=== PATIENT | male | born 1940 | race Caucasian/White ===

== ENCOUNTER 2016-05-24 11:17 | Observation (INO) | payer MEDICARE ==
[~2016-05-24] VITALS: Ht 170.2 cm; Wt 70.7 kg
[2016-05-24] VITALS (8 sets, daily range): BP systolic 136–169; BP diastolic 68–84; PULSE 63–76; RESP 18–20; O2SAT 96–100
[~2016-05-24 11:17] MED LIST: CHOL100045 PO; HYDR500C2 PO; LISI-571 PO; OMEP20TA24 PO; areds PO
--- NOTE | 2016-05-24 11:32 | ED.REPORT ---
HPI-Chest Pain 40 and Over Date of Service May 24, 2016 ED Provider: Roderick Herr MD 76 year old male with a history of HTN and GERD presents to the ER accompanied by his complaining of multiple episodes of chest pain. Pain is described as a dull pressure. First episode onset 3 days ago while he was walking the dog , and lasted 45 minutes. At that time an aching pain radiated down his left arm , and all symptoms were relieved with rest. Second episode onset the following day, again with exertion, was similar in its duration lasting approximately 30 minutes, and was again resolved itself after resting. Associated dizziness with both episodes. When symptoms returned last night he informed his is who insisted on bringing him into the ER today, which is the reason for his visit. Patient denies SOB, nausea, or diaphoresis with symptoms. Nursing Notes Stated Complaint: CHEST PAIN Chief Complaint: Chest Pain Nursing Notes Reviewed: Yes Allergies: Coded Allergies: No Known Allergies (Verified Allergy, Unknown, 05/24/16) Scheduled ([areds]) 1 CAPSULE PO DAILY Cholecalciferol (Vitamin D3) (Vitamin D) 1,000 Unit Capsule 2,000 UNIT PO DAILY Hydroxyurea (Hydroxyurea) 500 Mg Capsule 500 MG PO DAILY Lisinopril (Lisinopril) 5 Mg Tablet 2.5 MG PO DAILY Omeprazole Magnesium (Prilosec Otc) 20 Mg Tablet.dr 20 MG PO DAILY General Time Seen by MD: 11:33 Chief Complaint Chest pain Hx Obtained From: Patient, Spouse Arrived By: Walk-in Sudden in Onset?: Yes Onset Occurred: 2 days ago (2 and 3) Location: : Substernal Quality: Painful Radiation: : Arm left Severity: Current: No pain currently Severity: Maximum: Moderate Associated with: Reports: Dizziness, Denies: Diaphoresis, Nausea, Shortness of Breath, Vomiting Context Related History: Reports: GERD, Hypertension Similar Sx Previous: No Risk Factors HEART Score HEART for MACE: Mod index of susp (1), Age 65 or over (2), 1-2 CAD risk factors (1) HEART for MACE Score: 4-7 (mod risk 12%-16.6%) Past Medical History Past Medical History Reports: GERD, Hypertension, Denies: COPD, Congestive heart failure, Coronary artery disease, Diabetes mellitus Denies: Atrial fibrillation Family History Siblings [place] - age 70 and 80 Smoking History Former Smoker (15 years) Social History Alcohol Use: 1-3 per day Other Social History: Good social support, Ambulatory Status Independent Review of Systems Respiratory: Denies: Non-productive cough, Shortness of breath Cardiovascular: Reports: Chest pain GI: Denies: Nausea, Vomiting Musculoskeletal: Reports: Extremity pain, Denies: Back pain, Lumbar pain, Neck pain Skin: Denies Diaphoresis Complete sys rev & neg: except as marked. Physical Exam Initial Vital Signs Vital Signs (First) Date Time Temp Pulse Resp B/P Pulse Ox O2 Delivery O2 Flow Rate FiO2 05/24/16 11:20 36.3 69 18 147/82 96 Room Air Initial VS: Reviewed Head / Eyes: Atraumatic, Normocephalic Neck: Supple, Non-tender, Full range of motion Extremities: Vascular intact, Neuro intact, No swelling, No tenderness Skin: Warm, Dry, No cyanosis Neurologic: Alert, Oriented, Nonfocal General/Constitutional: Awake, Alert, Well developed, Well nourished Respiratory / Chest: Breath sounds NL, Breath sounds = bilat, No respiratory distress, No rales, No rhonchi, No wheezing Cardiovascular: Heart rate NL, Regular rhythm, Heart sounds NL, No murmurs, Peripheral circulation NL, Pulses = bilaterally, No gross BP differential Abdomen: Soft, Non-tender, No guarding, No rebound, No distention Interpretation & Diagnostics Lab Results Interpretation Result Diagram: 05/24/16 1145 05/24/16 1145 Test 05/24/16 11:45 05/24/16 13:30 White Blood Count 7.8th/mm3 (3.8-10.1) Red Blood Count 4.08mil/mm3 (4.40-5.80) Hemoglobin 14.7g/dL (13.8-17.2) Hematocrit 42.0% (41.0-50.0) Mean Corpuscular Volume 102.9fL (81-100) Mean Corpuscular Hemoglobin 36.0pg (27.0-35.0) Mean Corpuscular Hemoglobin Concent 35.0% (32.0-37.0) Red Cell Distribution Width 13.4% (12.3-15.4) Platelet Count 334bil/L (150-400) Neutrophils (%) (Auto) 65.6% (40-74) Lymphocytes (%) (Auto) 15.7% (14-46) Monocytes (%) (Auto) 14.7% (4-12) Eosinophils (%) (Auto) 2.8% (0-5) Basophils (%) (Auto) 0.9% (0-3) Sodium Level 135mEq/L (134-144) Potassium Level 4.4mEq/L (3.5-5.2) Chloride Level 99mEq/L (97-108) Carbon Dioxide Level 24mmol/L (18-29) Blood Urea Nitrogen 20mg/dL (8-27) Creatinine 0.92mg/dL (0.76-1.27) Estimat Glomerular Filtration Rate 85mL/min (>59) Glucose Level 96mg/dL (60-99) Calcium Level 8.7mg/dL (8.5-10.1) Total Bilirubin 0.4mg/dL (0.0-1.2) Aspartate Amino Transf (AST/SGOT) 16U/L (0-50) Alanine Aminotransferase (ALT/SGPT) 9U/L (0-44) Alkaline Phosphatase 68U/L (25-160) Troponin T 0.010ug/L (0.0-0.011) Total Protein 6.3g/dL (6.4-8.4) Albumin 4.0g/dL (3.4-5.0) Hold Rodriguez Top Tube Received (Received) ECG Interpretation Time: 11:37 Interpreted by: ED physician Normal ECG Interpretation: Normal rate, Normal sinus rhythm, No acute ischemic changes, Normal QRS, Normal axis, Normal intervals, No change from prior ECGs, Adequate tracing X-Ray Chest Interpretation Chest Xray Interpretation: IMPRESSION: No acute cardiopulmonary disease. Dictated by: Jhony Bryan RRA Interpreted: Fouzia Bolden MD on 05/24/2016 at 12:19 Transcribed by: FRANCIS on 05/24/2016 at 12:20 View: AP & lat Interpretation / Wet Read by: Interpret - Radiologist Re-Eval/Medical Decision Source of Hx: Family Time of Eval: 11:41 Re-Evaluation/Progress Note: Discussed need for admission. Patient is amenable to the plan. All other questions addressed. 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 I, Dr. Herr, personally performed the history, physical exam and medical decision-making; I reviewed and confirmed the accuracy of the information in the transcribed note. Signed by: Alka August, 05/24/2016 and 13:32 copies to: Joe Fox MD, Kirk H MD May 24, 2016 11:32 KAYLA BOYER May 24, 2016 11:41
[2016-05-24 12:02] LABS: BASOPHILS % (AUTO) 0.9 % (0-3); EOSINOPHILS % (AUTO) 2.8 % (0-5); MONOCYTES % (AUTO) 14.7 % (4-12); Mean Corpuscular Volume 102.9 fL (81-100); NEUTROPHILS % (AUTO) 65.6 % (40-74); Platelet Count 334 bil/L (150-400)
--- NOTE | 2016-05-24 12:20 | DRSVH ---
PROCEDURE: X-RAY CHEST, TWO VIEWS ([id number]) INDICATIONS: CHest Pain TECHNIQUE: 2 views of the chest were acquired. COMPARISON: None. FINDINGS: Surgical changes and devices: None. Lungs and pleura: No pleural effusions or pneumothorax. Lungs are clear. Mediastinum: Mediastinal contours are normal. Heart size is normal. Bones and chest wall: No suspicious bony abnormalities. Soft tissues appear unremarkable. IMPRESSION: No acute cardiopulmonary disease. Dictated by: Jhony Bryan [facility] Interpreted: Fouzia Bolden MD on 05/24/2016 at 12:19 Transcribed by: FRANCIS on 05/24/2016 at 12:20 Approved by: Fouzia Bolden MD, PhD on 05/24/2016 at 16:30
[2016-05-24 12:27] LABS: TROPONIN T 0.01 ug/L (0.0-0.011)
[2016-05-24] MEDS ORDERED: Polyethylene Glycol (PEG) 17 Gm Powder PO PRN (13:15)
[2016-05-24] MEDS ORDERED: Alum-Mag Hydrox-Simeth 30 mL Suspension PO PRN (13:15)
[2016-05-24] MEDS ORDERED: Senna-Docusate 8.6-50 mg Tablet PO PRN (13:15)
[2016-05-24] MEDS ORDERED: Ondansetron 2 mg/mL 2 mL Inj IVPUSH PRN (13:15)
--- NOTE | 2016-05-24 13:46 | PCM.HPMED ---
Subjective Date of Service May 24, 2016 Primary Provider: Admitting Physician: Primary Care Physician: Jerry Brewer MD Attending Physician: Chief Complaint: Chest pain History of Present Illness: Joe Crowder is a 76 year old man with past medical history significant for hypertension and thrombocytosis well controlled on hydroxyurea who presented to the [facility] ED accompanied by his complaining of multiple episodes of chest pain that occurred 3 days ago. The pain began when he was walking his dog and noted substernal pressure with radiation to his left arm. The pain lasted for a total of 45 minutes as the patient walked home and the pain continued for 15 minutes after he was at rest. He has had a similar episode of chest pain 3 years ago and had an exercise stress test done that did not show any abnormalities. The second episode occurred when the patient was exerting himself again and lasted about 30 minutes and again resolved with rest. The patient noted dizziness with the episodes but denies any palpitations, nausea, vomiting, abdominal pain, shortness of breath or diaphoresis. The patient later informed his of the events and she brought him to the ED. He is a former smoker of 50 pack years but has quit in 2000. He does have a history of hyperlipidemia but does very poorly with statins and is not one and refuses to start one again. Review of Systems: A comprehensive review of systems was conducted with the patient and found to be negative except as above in the History of Present Illness. Allergies Coded Allergies: No Known Allergies (Verified Allergy, Unknown, 05/24/16) Home Medications Cholecalciferol (Vitamin D3) (Vitamin D) 1,000 Unit Capsule 2,000 UNIT PO DAILY Hydroxyurea (Hydroxyurea) 500 Mg Capsule 500 MG PO DAILY Lisinopril (Lisinopril) 5 Mg Tablet 2.5 MG PO DAILY Omeprazole Magnesium (Prilosec Otc) 20 Mg Tablet.dr 20 MG PO DAILY [facility] Hyperlipidemia Thrombocytosis with JAK2 mutation followed by Dr. Miller Hypertension Surgical History None Family History His sisters had MIs in their late age, 70s and 80s. Social History Hx Alcohol Use: Yes (1-2 DAY) Alcoholic Drinks Per Day: whiskey Hx Substance Use: No Hx Tobacco Use: Yes Smoking Status: Former Smoker Living Arrangement: with Family Additional Information Independent of his ADLs Exam Vital Signs Vital Sign - Last Date Time Temp Pulse Resp B/P Pulse Ox O2 Delivery O2 Flow Rate FiO2 05/24/16 13:29 63 18 157/81 100 Room Air 05/24/16 11:20 36.3 Exam General: No acute distress, well-developed, well-nourished, appropriately interactive HEENT: Normocephalic, atraumatic. External ears without defect. Pupils equal, round, and reactive to light and accommodation. Anicteric sclerae, moist conjunctivae, and no lid lag. Oropharynx free of erythema and cobble stoning with moist mucosa. Neck: Supple with full range of motion. No jugular venous distension. No bruits. No lymphadenopathy or thyromegaly. Cardiovascular: Regular rate and rhythm with no murmurs, rubs, appreciated. Possible gallop heard. Radial and dorsalis pedis pulses present bilaterally, equal. PMI non-displaced. No chest wall tenderness. Pulmonary: Clear to auscultation bilaterally with no crackles, wheezes, or rhonchi. Normal respiratory effort with no use of accessory muscles. Mildly reduced breath sounds. Abdomen: Bowel tones present. Soft, nontender, nondistended. No hepatosplenomegaly or masses appreciated. Extremities: No clubbing, cyanosis, edema, or lymphadenopathy appreciated. Skin: Normal temperature, turgor, and texture; no rash, ulcers, or subcutaneous nodules appreciated. Neurological: Cranial nerves grossly intact. Normal muscle strength, tone, and bulk. Reflexes, coordination, and sensory function within normal limits. No known gait impairment. Psychiatric: Normal mood and affect. Alert and oriented to person, place, and time. Lab and Diagnostics Result Diagram: 05/24/16 1145 05/24/16 1145 X-Rays, CTs and MRIs X-RAY CHEST, TWO VIEWS IMPRESSION: No acute cardiopulmonary disease. Dictated by: Jhony Bryan RRA Interpreted: Fouzia Bolden MD on 05/24/2016 at 12:19 12-lead ECG NSR, no axis deviation, no ST changes. Assessment & Plan Joe Crowder is a 76 year old man with past medical history significant for hypertension and thrombocytosis well controlled on hydroxyurea who presented to the [facility] ED accompanied by his complaining of multiple episodes of chest pain that occurred 3 days ago. Stable angina, acute, present on admission -Patient's chest pain is typical per Yarelis Forester rule with positive predictive value of a stress test high -Currently patient is chest pain free, no indication for full anticoagulation -First troponin negative, will continue to trend -Patient is refusing a statin -Lipid panel in AM -Serial EKG with PRN EKGs in case of chest pain -ECHO ordered, no prior for comparison -Exercise stress test in tomorrow after 3 negative troponin values -Low dose beta sariah, 81 mg ASA daily -No indication for Plavix at this time Hypertension, chronic, present on admission -Continue lisinopril -Patient would likely benefit from tighter blood pressure control, will consider titrating up lisinopril after stress test results if beta sariah is not continued Thrombocytosis, chronic present on admission -Patient is on hydroxyurea, managed by Dr. Miller, will continue GERD, chronic, present on admission -Continue PPI CODE STATUS: DNR/DNI Patient is admitted under observation status with expected length of stay less than 2 midnights due to severity of presenting symptoms, risk of adverse event, and complexity of treatment plan. VTE Prophylaxis: Sub-Q Heparin (Unfractionated) Resuscitation Status: DNR/DNI:Do Not Resuscitate/Intubate Time spent 50 minutes Attending Statement I have seen and evaluated patient at bedside in addition to directly supervising care provided by resident physician. I agree with above documentation. Albina Malloy DO May 24, 2016 13:46 Jorden Hunter DO May 25, 2016 08:01
[2016-05-24] MEDS: 0.9% Sodium Chloride 1,000 ML IV SCH (14:48)
[2016-05-24] MEDS: Sodium Chloride LOK Flush 10 mL Syringe IVFLUSH SCH (14:48)
[2016-05-24] MEDS: Heparin 5,000 Unit/mL Inj SUBQ SCH (16:30)
--- NOTE | 2016-05-24 17:08 | DRSVH ---
[facility] [address] [place] [address] Echocardiogram Report Name: AMAURI ANN JStudy Date: 05/24/2016 Height: 67 in Hospital Exam Location: [facility] Weight: 162 lb Gender: Male BSA: 1.8 m2 : 1940 Age: 76 yrs BP: 157/81 mmHg Reason For Study: Chest pain Ordering Physician: Performed By: Luz [facility]wellNorth[facility] Interpretation Summary The left ventricle is normal in size. Left ventricular systolic function is normal without focal wall motion abnormalities. The ejection fraction is estimated to be 55-60%. Assessment of diastolic parameters indicates a relaxation abnormality of the left ventricle, consistent with normal filling pressures. The right ventricle grossly appears normal in size with probable normal systolic function. The right ventricular systolic pressure is estimated at 36 mmHg assuming a right atrial pressure of 3 mm Hg. The left atrial size is normal. Right atrial size is normal. There is no significant valvular heart disease. The aortic root is normal size. Procedure: A two-dimensional transthoracic echocardiogram with color flow and Doppler was performed. The study quality was technically good. There is no prior echocardiogram noted for this patient. The patient was in normal sinus rhythm during the exam. Left Ventricle: The left ventricle is normal in size. There is normal left ventricular wall thickness. Left ventricular systolic function is normal without focal wall motion abnormalities. The ejection fraction is estimated to be 55-60%. Assessment of diastolic parameters indicates a relaxation abnormality of the left ventricle, consistent with normal filling pressures. Right Ventricle: The right ventricle grossly appears normal in size with probable normal systolic function. Atria: The left atrial size is normal. Right atrial size is normal. The interatrial septum is intact with no evidence for an atrial septal defect. Mitral Valve: The mitral valve is normal in structure and function. There is no mitral regurgitation noted. Aortic Valve: The aortic valve is trileaflet. The aortic valve opens well. There is trace aortic regurgitation. Tricuspid Valve: The tricuspid valve is normal in structure and function. There is mild tricuspid regurgitation. The right ventricular systolic pressure is estimated at 36 mmHg assuming a right atrial pressure of 3 mm Hg. Pulmonic Valve: The pulmonic valve is normal in structure and function. There is trace pulmonic regurgitation. There is no significant valvular heart disease. Great Vessels: The aortic root is normal size. The dimensions of the ascending aorta are normal. The IVC is of normal diameter and collapses greater than 50% with a sniff. This suggests a low right atrial pressure of 3 mm Hg. Pericardium/ Pleura There is no pericardial effusion. There is no pleural effusion. MMode/2D Measurements & Calculations LVIDd: 4.7 cm LA dimension: 3.5 cm RA long axis Ao root diam LVIDs: 2.8 cm FS: 41.6 % LA A2 area: 18.6 cm RA area Aortic Jxn: 2.6 cm IVSd: 0.74 cm LA A4 area: 21.0 cm asc Aorta Diam LVPWd: 0.75 cm LA length (vol) : 13.9 cm RA vol Ao Arch Diam (Prox LA vol: 53.8 ml : 35.5 ml Trans): 2.4 cm LA vol index RA : 19.2 mm/ RVDd major IVC diam: 1.5 cm : 4.9 cm LV rodriguez. diameter/BSA LV sys. diameter/BSA RVD1 (basal) RVD2 (mid): 3.0 cm (cm/m^2): 2.6 (cm/m^2): 1.5 Doppler Measurements & Calculations Ao V2 max MV E max moreno MV E/A: 0.76 TR max moreno : 121.5 cm/sec : 74.5 cm/sec Med Peak E' Moreno : 285.8 cm/sec Ao max PG MV A max moreno TR max PG : 5.9 mmHg : 97.7 cm/sec E/E' med: 9.0 : 32.7 mmHg Ao mean PG MV P1/2t: 57.9 msec Lat Peak E' Moreno PA V2 max : 3.5 mmHg : 82.4 cm/sec E/E' lat: 8.9 PA mean PG E/e' average: 8.9 : 1.8 mmHg Pulm A Revs Dur MV dec time MV P1/2t max moreno Ao V2 mean PA V2 mean : 0.18 sec : 89.5 cm/sec : 62.3 cm/sec MVA(P1/2t): 3.8 cm2 Ao V2 VTI: 30.7 cm Reading Physician:PM
[2016-05-25] MEDS: Sodium Chloride LOK Flush 10 mL Syringe IVFLUSH SCH ×2 (00:02→07:38)
[2016-05-25] MEDS: Heparin 5,000 Unit/mL Inj SUBQ SCH ×2 (00:02→07:37)
[2016-05-25 01:20] VITALS: BP 124/74; PULSE 74; RESP 18; O2SAT 98
[2016-05-25] MEDS: 0.9% Sodium Chloride 1,000 ML IV SCH (02:03)
[2016-05-25 05:06] VITALS: BP 132/76; PULSE 68; RESP 18; O2SAT 96
[2016-05-25 06:16] LABS: BASOPHILS % (AUTO) 1.6 % (0-3); EOSINOPHILS % (AUTO) 3.2 % (0-5); Mean Corpuscular Hemoglobin 36.2 pg (27.0-35.0); Mean Corpuscular Volume 104.1 fL (81-100); Platelet Count 300 bil/L (150-400)
[2016-05-25 06:28] LABS: TROPONIN T 0.01 ug/L (0.0-0.011)
[2016-05-25] MEDS ORDERED: Pantoprazole 20 mg ER24 Tablet PO SCH (06:30)
[2016-05-25 10:47] VITALS: PULSE 64
[2016-05-25 15:06] VITALS: BP 163/80; PULSE 64; RESP 20; O2SAT 96
--- NOTE | 2016-05-25 15:36 | DRSVH ---
PROCEDURE: ONE DAY TREADMILL STRESS TEST REFERRING PHYSICIAN: Dr. Malloy PRIMARY CARE PROVIDER: Dr. Brewer INDICATIONS: Mr. Crowder is a 76-year-old gentleman who presents with symptoms of exertional chest di scomfort. A nuclear cardiac stress study is performed to exclude significant underlying ischemic hea rt disease. STRESS TEST: Mr. Crowder is exercised according to a regular [employer] protocol, achieving an exercise ti me of 5 minutes and 10 seconds. This was equivalent to the expected exercise capacity for an active 76-year-old male. He developed symptoms of left arm discomfort and substernal chest discomfort with shortness of breath starting towards the end of the third minute of the first stage. He had a blunte d blood pressure response to exercise and reached a peak heart rate of 119 beats per minute or 84% of his maximum predicted. His left arm and chest discomfort persisted for approximately 7 minutes into the post-exercise period. Baseline EKG appears normal and the patient did not have any clear-cut di agnostic ST segment abnormalities during or after stress. PROCEDURE: This patient received 8.4 mCi of technetium-99 tetrofosmin for the resting portion of the examination. He subsequently received 25.1 mCi for the stress portion of the examination. FINDINGS: Raw Data: Raw data images demonstrate overall good image quality. No significant source of artifact or interference is noted. Quantitative Gated SPECT Imaging: Gated images demonstrate a normal-size ventricle with an end diast olic volume of 66 cc. Estimated ejection fraction is 69% with normal-appearing left ventricular cont ractility. Quantitative Perfusion SPECT Imaging: Myocardial perfusion imaging demonstrates a normal distributio n of radioisotope throughout the myocardium. No perfusion abnormalities are identified that would lantigua ggest ischemia or scar. IMPRESSION: Normal nuclear cardiac stress study: A. Mildly blunted heart rate and blood pressure response related to the patient's metoprolol therapy from the day before. Symptoms of chest discomfort notable without electrocardiographic changes. B. Normal-size left ventricle and normal left ventricular contractility. C. Normal myocardial perfusion imaging with no evidence that would suggest ischemia or scar. DISCUSSION: This patient's nuclear cardiac stress study suggests a low likelihood for the presence o f significant underlying obstructive coronary artery disease. The absence of EKG changes or myocardi al perfusion abnormalities would suggest that this patient's exertional chest discomfort may not be r elated to underlying ischemia. Clinical correlation suggested. Dictated by: Onofre Moser M.D. on 05/25/2016 at 12:14 Transcribed by: XOCHITL on 05/25/2016 at 18:36 Approved by: Onofre Moser M.D. on 05/25/2016 at 16:58
[2016-05-25] MEDS ORDERED: ASPI81TA3 PO (16:19)
--- NOTE | 2016-05-25 16:19 | PCM.DIMED ---
Discharge Instructions Date of Service May 25, 2016 Dates of Hospitalization May 24, 2016 at 13:47 Discharge Diagnosis Discharge Diagnosis Chest pain with exertion, non-cardiogenic. Diet Low fat, Low Sodium, Heart Healthy Activity Limited until seen by PCP Call your provider Shortness of breath, Chest pain Patient Instructions Follow-up Provider: Jerry Brewer MD Follow-up with PCP in: 1 week Jorden Hunter DO May 25, 2016 16:19
--- NOTE | 2016-05-25 16:27 | PCM.DC.MED ---
Discharge Summary Date of Service May 25, 2016 Dates of Hospitalization Date of Hospital Admission May 24, 2016 at 13:47 Date of Discharge: May 25, 2016 Providers: Admitting Physician: Jorden Hunter DO Primary Care Physician: Jerry Brewer MD Attending Physician: Jorden Hunter DO Diagnosis at Time of Discharge Diagnosis at Time of Discharge Chest pain with exertion, non-cardiogenic. Procedures XRay, CTs & MRIs X-RAY CHEST, TWO VIEWS IMPRESSION: No acute cardiopulmonary disease. Dictated by: Jhony Bryan RRA Interpreted: Fouzia Bolden MD on 05/24/2016 at 12:19 ECG 12 Lead NSR, no axis deviation, no ST changes. Other Diagnostics PROCEDURE: ONE DAY TREADMILL STRESS TEST REFERRING PHYSICIAN: Dr. Malloy PRIMARY CARE PROVIDER: Dr. Brewer INDICATIONS: Mr. Crowder is a 76-year-old gentleman who presents with symptoms of exertional chest discomfort. A nuclear cardiac stress study is performed to exclude significant underlying ischemic heart disease. STRESS TEST: Mr. Crowder is exercised according to a regular [employer] protocol, achieving an exercise time of 5 minutes and 10 seconds. This was equivalent to the expected exercise capacity for an active 76-year-old male. He developed symptoms of left arm discomfort and substernal chest discomfort with shortness of breath starting towards the end of the third minute of the first stage. He had a blunted blood pressure response to exercise and reached a peak heart rate of 119 beats per minute or 84% of his maximum predicted. His left arm and chest discomfort persisted for approximately 7 minutes into the post-exercise period. Baseline EKG appears normal and the patient did not have any clear-cut diagnostic ST segment abnormalities during or after stress. PROCEDURE: This patient received 8.4 mCi of technetium-99 tetrofosmin for the resting portion of the examination. He subsequently received 25.1 mCi for the stress portion of the examination. FINDINGS: Raw Data: Raw data images demonstrate overall good image quality. No significant source of artifact or interference is noted. Quantitative Gated SPECT Imaging: Gated images demonstrate a normal-size ventricle with an end diastolic volume of 66 cc. Estimated ejection fraction is 69% with normal-appearing left ventricular contractility. Quantitative Perfusion SPECT Imaging: Myocardial perfusion imaging demonstrates a normal distribution of radioisotope throughout the myocardium. No perfusion abnormalities are identified that would suggest ischemia or scar. IMPRESSION: Normal nuclear cardiac stress study: A. Mildly blunted heart rate and blood pressure response related to the patient 's metoprolol therapy from the day before. Symptoms of chest discomfort notable without electrocardiographic changes. B. Normal-size left ventricle and normal left ventricular contractility. C. Normal myocardial perfusion imaging with no evidence that would suggest ischemia or scar. DISCUSSION: This patient's nuclear cardiac stress study suggests a low likelihood for the presence of significant underlying obstructive coronary artery disease. The absence of EKG changes or myocardial perfusion abnormalities would suggest that this patient's exertional chest discomfort may not be related to underlying ischemia. Clinical correlation suggested. Dictated by: Onofre Moser M.D. on 05/25/2016 at 12:14 Brief History As per HPI on admission by Dr. Andre, "Joe Crowder is a 76 year old man with past medical history significant for hypertension and thrombocytosis well controlled on hydroxyurea who presented to the [facility] ED accompanied by his complaining of multiple episodes of chest pain that occurred 3 days ago. The pain began when he was walking his dog and noted substernal pressure with radiation to his left arm. The pain lasted for a total of 45 minutes as the patient walked home and the pain continued for 15 minutes after he was at rest. He has had a similar episode of chest pain 3 years ago and had an exercise stress test done that did not show any abnormalities. The second episode occurred when the patient was exerting himself again and lasted about 30 minutes and again resolved with rest. The patient noted dizziness with the episodes but denies any palpitations, nausea, vomiting, abdominal pain, shortness of breath or diaphoresis. The patient later informed his of the events and she brought him to the ED. He is a former smoker of 50 pack years but has quit in 2000. He does have a history of hyperlipidemia but does very poorly with statins and is not one and refuses to start one again." Hospital Course Joe Crowder is a 76 year old man with past medical history significant for hypertension and thrombocytosis well controlled on hydroxyurea who presented to the [facility] ED accompanied by his complaining of multiple episodes of chest pain that occurred 3 days ago. Stable angina, acute, though resolved on admission. Pt demonstrated some chest discomfort during exersize stress test, however no EKG changes consistent with ischemia were noted. As such, pt was cleared for discharge with plan for FU with PCP for further evaluation, possible out patient cardiology consultation should this condition persist. Pt was started on daily Aspirin 81mg daily, but statin held due tp previously noted side effects. Hypertension, chronic, present on admission stable through hospital stay. Controlled Plan to continue lisinopril Thrombocytosis, chronic present on admission: Patient is on hydroxyurea, managed by Dr. Miller, will continue to follow up. GERD, chronic, present on admission;Continue PPI Exam Vital Signs (Last) Date Time Temp Pulse Resp B/P Pulse Ox O2 Delivery O2 Flow Rate FiO2 05/25/16 15:06 36.7 64 20 163/80 96 Room Air Test 05/24/16 11:45 05/24/16 13:30 05/25/16 05:45 05/25/16 07:48 Total Bilirubin 0.4mg/dL (0.0-1.2) Aspartate Amino Transf (AST/SGOT) 16U/L (0-50) Alanine Aminotransferase (ALT/SGPT) 9U/L (0-44) Alkaline Phosphatase 68U/L (25-160) Total Protein 6.3g/dL (6.4-8.4) Albumin 4.0g/dL (3.4-5.0) Hold Rodriguez Top Tube Received (Received) Hemoglobin A1c 5.7% (4.8-5.6) Magnesium Level 2.0mg/dL (1.6-2.6) Thyroid Stimulating Hormone (TSH) 4.800uIU/mL (0.450-4.500) White Blood Count 6.9th/mm3 (3.8-10.1) Red Blood Count 3.90mil/mm3 (4.40-5.80) Hemoglobin 14.1g/dL (13.8-17.2) Hematocrit 40.6% (41.0-50.0) Mean Corpuscular Volume 104.1fL (81-100) Mean Corpuscular Hemoglobin 36.2pg (27.0-35.0) Mean Corpuscular Hemoglobin Concent 34.7% (32.0-37.0) Red Cell Distribution Width 13.2% (12.3-15.4) Platelet Count 300bil/L (150-400) Neutrophils (%) (Auto) 65.0% (40-74) Lymphocytes (%) (Auto) 18.1% (14-46) Monocytes (%) (Auto) 12.0% (4-12) Eosinophils (%) (Auto) 3.2% (0-5) Basophils (%) (Auto) 1.6% (0-3) Sodium Level 141mEq/L (134-144) Potassium Level 4.6mEq/L (3.5-5.2) Chloride Level 105mEq/L (97-108) Carbon Dioxide Level 25mmol/L (18-29) Blood Urea Nitrogen 18mg/dL (8-27) Creatinine 0.90mg/dL (0.76-1.27) Estimat Glomerular Filtration Rate 87mL/min (>59) Glucose Level 111mg/dL (60-99) Calcium Level 8.4mg/dL (8.5-10.1) Troponin T 0.010ug/L (0.0-0.011) Triglycerides Level 332mg/dL (0-149) Cholesterol Level 236mg/dL (100-199) LDL Cholesterol, Calculated 126.600mg/dL (0-99) VLDL Cholesterol 66.400mg/dL HDL Cholesterol 43mg/dL (>39) Cholesterol/HDL Ratio 5.49 (0.0-4.4) Hold Urine Received (Received) General: Alert, Oriented X3, Cooperative Mouth: Mucous Membranes Dry Chest & Lungs: Chest Wall Normal Cardiovascular: Regular Rate/Rhythm Extremities: No cyanosis/clubbing/edma bilat Neurological: Grossly Neurologically Intact Discharge Medications Discharge Medications ([areds]) 1 CAPSULE PO DAILY (Reported) Aspirin Chew (Aspirin Chew) 81 Mg Chew 81 MG PO DAILY Prescribed by: JORDEN HUNTER DO Cholecalciferol (Vitamin D3) (Vitamin D) 1,000 Unit Capsule 2,000 UNIT PO DAILY (Reported) Hydroxyurea (Hydroxyurea) 500 Mg Capsule 500 MG PO DAILY (Reported) Lisinopril (Lisinopril) 5 Mg Tablet 2.5 MG PO DAILY (Reported) Omeprazole Magnesium (Prilosec Otc) 20 Mg Tablet.dr 20 MG PO DAILY (Reported) Followup Plan Disposition: Home with family. Discharge Diet: Low fat, Low Sodium, Heart Healthy Discharge Activity: Limited until seen by PCP Follow-up Provider: Jerry Brewer MD Follow-up with PCP in: 1 week Time spent 40 minutes copies to: Jerry Brewer MD Vital Signs Vital Sign - Last Date Time Temp Pulse Resp B/P Pulse Ox O2 Delivery O2 Flow Rate FiO2 05/25/16 15:06 36.7 64 20 163/80 96 Room Air Intake and Output 05/24/16 05/24/16 05/25/16 Cumulative From/Thru 15:00 23:00 07:00 05/24/16 11:20 - 05/25/16 06:31 Intake Total 700 ml 1122 ml 1822 ml Balance 700 ml 1122 ml 1822 ml Intake Oral 700 ml 0 ml 700 ml IV Total 1122 ml 1122 ml # Voids 2 3 5 # Bowel Movements 0 0 0 Lab and Diagnostics Result Diagram: 05/25/16 0545 05/25/16 0545 Jorden Hunter DO May 25, 2016 16:27
== END 2016-05-25 17:00 | disposition home or self-care (01) ==
LOC: SED 11:17 → MPC 13:47
PROVIDERS: ADMIT Family Medicine; ATTEND Family Medicine
DX: R07.89 Other chest pain (principal); I10 Essential (primary) hypertension; D47.3 Essential (hemorrhagic) thrombocythemia; E78.5 Hyperlipidemia, unspecified; Z87.891 Personal history of nicotine dependence; K21.9 Gastro-esophageal reflux disease without esophagitis; Z79.82 Long term (current) use of aspirin; Z79.899 Other long term (current) drug therapy